=== PATIENT | female | born 2000 | race Two or more races ===

== ENCOUNTER 2018-11-06 17:58 | Emergency (ER) | payer MEDICAID ==
--- NOTE | 2018-11-06 18:04 | EDPHY ---
H & P Time Seen by Provider: 11/06/18 18:03 HPI/ROS: CHIEF COMPLAINT: Dyspnea HISTORY OF PRESENT ILLNESS: The patient presents the ED with several days of dyspnea and mild pleuritic chest pain. The patient denies any asymmetric calf pain or swelling. She denies fever, cough or congestion. She denies use of cigarettes or hormone replacement therapy. The patient has no complaints of recent prolonged travel. She denies any abdominal pain, vomiting or diarrhea. She reports her symptoms are mild in nature. REVIEW OF SYSTEMS: A comprehensive 10 point review of systems is otherwise negative aside from elements mentioned in the history of present illness. Source: Patient Exam Limitations: No limitations - Medical/Surgical History Hx Asthma: No Hx Chronic Respiratory Disease: No Hx Diabetes: No Hx Cardiac Disease: No Hx Renal Disease: No Hx Cirrhosis: No Hx Alcoholism: No Hx HIV/AIDS: No Hx Splenectomy or Spleen Trauma: No Other PMH: medical none. surgery IUD 1 year - Social History Smoking Status: Never smoked - Physical Exam Exam: General Appearance: Alert, no distress Eyes: Pupils equal and round no pallor or injection ENT, Mouth: Mucous membranes moist Respiratory: There are no retractions, lungs are clear to auscultation Cardiovascular: Regular rate and rhythm Gastrointestinal: Abdomen is soft and nontender, no masses, bowel sounds normal Neurological: A&O, normal motor function, normal sensory exam, normal cranial nerves Skin: Warm and dry, no rashes Musculoskeletal: Neck is supple nontender Extremities: symmetrical, full range of motion Constitutional: Initial Vital Signs Temperature (C) 36.7 C 11/06/18 18:02 Heart Rate 64 11/06/18 18:02 Respiratory Rate 16 11/06/18 18:02 Blood Pressure 111/70 11/06/18 18:02 O2 Sat (%) 99 11/06/18 18:02 O2 Delivery Mode Room Air Allergies/Adverse Reactions: No Known Allergies Allergy (Unverified 08/05/14 11:15) Home Medications: Medication Instructions Recorded NO HOME MEDS 02/27/10 Antibiotic 11/06/18 Medical Decision Making - Diagnostics EKG Interpretation: EKG: Complete interpretation has been separately recorded in the [facility] archive. Summary impression: Sinus rhythm, rate 66 Imaging Results: Imaging Impressions Chest X-Ray 11/06/18 18:13 Impression: Mild airways disease. Pelvic ultrasound: 5 week intrauterine is noted. Images reviewed by myself and discussed with the radiologist Dr. Butch Fine. ED Course/Re-evaluation: Patient presents to the ED for evaluation of 1 day of dyspnea. Patient's D- dimer is test is negative which I feel adequately excludes pulmonary embolism. The patient was found to be in the emergency department. She is having no symptoms of a intrauterine . The patient denies any abdominal pain, vomiting or vaginal bleeding. EKG demonstrates no evidence of an arrhythmia. The patient's troponin is normal. Chest x-ray demonstrates no evidence of active disease. I did attempt to visualize an intra uterine transabdominally was unsuccessful. A formal 1st trimester ultrasound was ordered in the setting of the patient's sensation of dyspnea. Pelvic ultrasound does demonstrate a 5 week IUP. At this point time there is no evidence of significant pulmonary disease cardiac disease or other explanation for dyspnea which appears worrisome. The patient will follow up with her primary care provider regarding her intrauterine . She is advised to return to the ED for markedly worsening symptoms or other concerns. Differential Diagnosis: Differential diagnosis considered includes asthma, bronchitis, pneumonia, pulmonary embolism, anxiety, ectopic , critical anemia - Data Points Laboratory Results: Laboratory Results 11/06/18 18:15 11/06/18 18:15 11/06/18 11/06/18 11/06/18 18:15 18:15 18:15 WBC RBC Hgb Hct MCV MCH MCHC RDW Plt Count MPV Neut % (Auto) Lymph % (Auto) Robeson % (Auto) Eos % (Auto) Baso % (Auto) Nucleat RBC Rel Count Absolute Neuts (auto) Absolute Lymphs (auto) Absolute Monos (auto) Absolute Eos (auto) Absolute Basos (auto) Absolute Nucleated RBC Immature Gran % Immature Gran # D-Dimer Sodium 136 mEq/L mEq/L (135-145) Potassium 3.8 mEq/L mEq/L (3.5-5.2) Chloride 105 mEq/L mEq/L (97-110) Carbon Dioxide 20 mEq/l L mEq/l (22-31) Anion Gap 11 mEq/L mEq/L (6-14) BUN 12 mg/dL mg/dL (7-23) Creatinine 0.6 mg/dL mg/dL (0.6-1.0) Estimated GFR > 60 Glucose 92 mg/dL mg/dL (70-100) Calcium 9.5 mg/dL mg/dL (8.5-10.4) Beta HCG, Qual POSITIVE Beta HCG, Quant 4688.30 mIU/mL H mIU/mL (0.00-4.83) 11/06/18 11/06/18 18:15 18:15 WBC 11.19 10^3/uL H 10^3/uL (3.80-9.50) RBC 4.89 10^6/uL 10^6/uL (4.18-5.33) Hgb 14.8 g/dL g/dL (12.6-16.3) Hct 43.0 % % (38.0-47.0) MCV 87.9 fL fL (81.5-99.8) MCH 30.3 pg pg (27.9-34.1) MCHC 34.4 g/dL g/dL (32.4-36.7) RDW 12.1 % % (11.5-15.2) Plt Count 288 10^3/uL 10^3/uL (150-400) MPV 10.0 fL fL (8.7-11.7) Neut % (Auto) 61.2 % % (39.3-74.2) Lymph % (Auto) 29.2 % % (15.0-45.0) Robeson % (Auto) 6.8 % % (4.5-13.0) Eos % (Auto) 1.9 % % (0.6-7.6) Baso % (Auto) 0.5 % % (0.3-1.7) Nucleat RBC Rel Count 0.0 % % (0.0-0.2) Absolute Neuts (auto) 6.84 10^3/uL H 10^3/uL (1.70-6.50) Absolute Lymphs (auto) 3.27 10^3/uL H 10^3/uL (1.00-3.00) Absolute Monos (auto) 0.76 10^3/uL 10^3/uL (0.30-0.80) Absolute Eos (auto) 0.21 10^3/uL 10^3/uL (0.03-0.40) Absolute Basos (auto) 0.06 10^3/uL 10^3/uL (0.02-0.10) Absolute Nucleated RBC 0.00 10^3/uL 10^3/uL (0-0.01) Immature Gran % 0.4 % % (0.0-1.1) Immature Gran # 0.05 10^3/uL 10^3/uL (0.00-0.10) D-Dimer < 0.27 ug/mLFEU ug/mLFEU (0.00-0.50) Sodium Potassium Chloride Carbon Dioxide Anion Gap BUN Creatinine Estimated GFR Glucose Calcium Beta HCG, Qual Beta HCG, Quant Medications Given: Discontinued Medications Albuterol/Ipratropium (Duoneb) 3 ml IH EDNOW ONE Stop: 11/06/18 18:14 Last Admin: 11/06/18 18:22 Dose: 3 ml Sodium Chloride (Ns) 1,000 mls @ 0 mls/hr IV EDNOW ONE; Wide Open PRN Reason: Protocol Stop: 11/06/18 19:12 Last Admin: 11/06/18 19:16 Dose: 1,000 mls Departure - Departure Disposition: [facility] Inpatient Acute Clinical Impression: Dyspnea, Condition: Good Instructions: Dyspnea (ED) Additional Instructions: 1. Please follow-up with your primary care provider regarding your newly diagnosed intrauterine . Return to the ED for severe pain, bleeding or other concerns. 2. Your chest x-ray, blood tests, EKG and other evaluation of your heart and lungs appears normal. Referrals: Kassie Lawson PA [Primary Care Provider] - As per Instructions
[2018-11-06] MEDS ORDERED: IPRATROPIUM/ALBUTEROL 3 ML DEYVIAL IH ONE (18:13)
--- NOTE | 2018-11-06 18:22 | CPEKG ---
Test Reason : OPEN Blood Pressure : / mmHG Vent. Rate : 066 BPM Atrial Rate : 066 BPM P-R Int : 133 ms QRS Dur : 087 ms QT Int : 401 ms P-R-T Axes : 025 041 004 degrees QTc Int : 421 ms Sinus rhythm Confirmed by Atif Smith ([id number]) on 11/06/2018 6:21:33 PM Referred By: Confirmed By:Atif Smith
[2018-11-06 18:35] LABS: PLATELET COUNT 288 10^3/uL (150-400)
[2018-11-06] MEDS ORDERED: NS 1,000 ML IV ONE (19:11)
[2018-11-06 20:08] VITALS: BP 91/74
== END 2018-11-06 20:20 | disposition still patient (30) ==
DX: R06.00 Dyspnea, unspecified (principal); Z33.1 Pregnant state, incidental; Z3A.01 Less than 8 weeks gestation of pregnancy